=== PATIENT | male | born 1960 | race Two or more races ===

== ENCOUNTER 2017-11-30 12:11 | Emergency (ER) | payer SELFPAY ==
[2017-11-30 12:43] LABS: ADD MAN DIFF? NO
[2017-11-30 12:47] LABS: BASO # 0.1 x10^3/uL (0.0-0.2); BASO % 1 % (0-3); EOS # 0.2 x10^3/uL (0.0-0.7); EOS % 3 % (0-3); HEMATOCRIT 39.8 % (39.0-53.0); HEMOGLOBIN 13.6 g/dL (13.0-17.5); LYMPH # 1.3 x10^3/uL (1.0-4.8); LYMPH % 17 % (24-48); MEAN CORPUSCULAR HEMOGLOBIN 30 pg (25-35); MEAN CORPUSCULAR HGB CONC 34 g/dL (31-37); MEAN CORPUSCULAR VOLUME 87 fL (79-100); MONO # 0.9 x10^3/uL (0.0-1.1); MONO % 11 % (0-9); NEUT # 5.6 x10^3uL (1.8-7.7); NEUT % 69 % (31-73); PLATELET COUNT 170 x10^3/uL (140-400); RED BLOOD COUNT 4.58 x10^6/uL (4.30-5.70); WHITE BLOOD COUNT 8.1 x10^3/uL (4.0-11.0)
[2017-11-30 12:57] LABS: PARTIAL THROMBOPLASTIN TIME 30 SEC (24-38); PROTHROMBIN TIME PATIENT 12.6 SEC (11.7-14.0)
[2017-11-30] MEDS: LABETALOL 20 MG/4 ML DISP.SYRIN. IVP ×2 (13:00)
[2017-11-30] MEDS: IV NORMAL SALINE 500ML BAG 500 ML IV ×2 (13:01)
[2017-11-30 13:06] LABS: ALBUMIN 3.7 g/dL (3.4-5.0); ALBUMIN/GLOBULIN RATIO 0.8 (1.0-1.7); ALK PHOS 120 U/L (46-116); ALT (SGPT) 62 U/L (16-63); ANION GAP 12 (6-14); AST (SGOT) 72 U/L (15-37); BLOOD UREA NITROGEN 10 mg/dL (8-26); BUN/CREATININE RATIO 11 (6-20); CALCIUM 9.3 mg/dL (8.5-10.1); CARBON DIOXIDE 28 mmol/L (21-32); CHLORIDE 97 mmol/L (98-107); CREATININE 0.9 mg/dL (0.7-1.3); GFR 87.3; GLUCOSE 114 mg/dL (70-99); SODIUM 137 mmol/L (136-145); TOTAL BILIRUBIN 0.5 mg/dL (0.2-1.0); TOTAL PROTEIN 8.3 g/dL (6.4-8.2)
[2017-11-30 13:07] LABS: POTASSIUM 2.9 mmol/L (3.5-5.1)
[2017-11-30 13:37] LABS: FECAL OB PT POSITIVE (NEG); NEG OBC FOB NEG; POS OBC FOB POS
[2017-11-30] MEDS: POTASSIUM CHLORIDE 20 MEQ TABLET.ER. PO ×2 (13:51)
== END 2017-11-30 14:35 | disposition home or self-care (01) ==
LOC: ER 12:11
DX: K62.5 Hemorrhage of anus and rectum (principal); E87.6 Hypokalemia
CPT/HCPCS: 36415; 80053; 82274; 85025; 85610; 85730; 96361; 96374; 96375; 99284-25; J2060; J3490; J7040

== ENCOUNTER 2018-08-11 15:23 | Emergency (ER) | payer SELFPAY ==
[~2018-08-11] VITALS: Ht 162.6 cm; Wt 59.0 kg
[~2018-08-11 15:23] MED LIST: OMEP20TA63 PO; POTA10TA11 PO
[2018-08-11 15:38] VITALS: BP 171/100
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
[2018-08-11] MEDS ORDERED: HYDR-971 PO (17:32)
== END 2018-08-11 17:51 | disposition home or self-care (01) ==
LOC: ER 15:23
DX: S09.8XXA Other specified injuries of head, initial encounter (principal); R07.81 Pleurodynia; H93.13 Tinnitus, bilateral; R42 Dizziness and giddiness; E78.00 Pure hypercholesterolemia, unspecified; I10 Essential (primary) hypertension; Y08.89XA Assault by other specified means, initial encounter; Y93.89 Activity, other specified; Y92.89 Other specified places as the place of occurrence of the external cause; Y99.8 Other external cause status
CPT/HCPCS: 70450; 71111; 99284

== ENCOUNTER 2020-04-23 16:45 | Emergency (ER) | payer OTHER ==
[~2020-04-23] VITALS: Ht 162.6 cm; Wt 63.6 kg
[~2020-04-23 16:45] MED LIST changes: +HYDR-3164 PO
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
[2020-04-23 17:54] LABS: BASO # 0.1 x10^3/uL (0.0-0.2); BASO % 1 % (0-3); EOS % 0 % (0-3); HEMATOCRIT 42.6 % (39.0-53.0); HEMOGLOBIN 14.8 g/dL (13.0-17.5); LYMPH # 0.8 x10^3/uL (1.0-4.8); LYMPH % 7 % (24-48); MEAN CORPUSCULAR HEMOGLOBIN 30 pg (25-35); MEAN CORPUSCULAR HGB CONC 35 g/dL (31-37); MEAN CORPUSCULAR VOLUME 85 fL (79-100); MONO # 0.6 x10^3/uL (0.0-1.1); MONO % 5 % (0-9); NEUT # 9.4 x10^3/uL (1.8-7.7); NEUT % 87 % (31-73); PLATELET COUNT 280 x10^3/uL (140-400); RED BLOOD COUNT 5.04 x10^6/uL (4.30-5.70); RED CELL DISTRIBUTION WIDTH 14.9 % (11.5-14.5); WHITE BLOOD COUNT 10.8 x10^3/uL (4.0-11.0)
[2020-04-23] MEDS ORDERED: PANTOPRAZOLE IV PUSH 40 MG VIAL. IVP ONE (18:00)
[2020-04-23] MEDS ORDERED: IV NORMAL SALINE 1000ML BAG 1,000 ML IV SCH (18:00)
[2020-04-23] MEDS ORDERED: ONDANSETRON PF 4 MG/2 ML VIAL. IVP ONE (18:00)
[2020-04-23 18:03] LABS: PROTHROMBIN TIME PATIENT 13.3 SEC (11.7-14.0)
[2020-04-23 18:06] LABS: CALCIUM 8.6 mg/dL (8.5-10.1); CREATININE 1.3 mg/dL (0.7-1.3); GFR 56.5; POTASSIUM 4.2 mmol/L (3.5-5.1)
[2020-04-23 18:09] LABS: ALBUMIN 3.7 g/dL (3.4-5.0); ALBUMIN/GLOBULIN RATIO 0.8 (1.0-1.7); MAGNESIUM 1.7 mg/dL (1.8-2.4); TOTAL BILIRUBIN 0.7 mg/dL (0.2-1.0); TOTAL PROTEIN 8.3 g/dL (6.4-8.2)
[2020-04-23] MEDS ORDERED: CONTRAST GIVEN. MC PRN (18:30)
[2020-04-23] MEDS ORDERED: IOHEXOL 300 MG/ML 100ML VIAL. IV ONE (18:30)
--- NOTE | 2020-04-23 18:35 | RAD ---
PORTABLE CHEST 1V 04/23/2020 5:30 PM INDICATION: Vomiting COMPARISON: None available TECHNIQUE: Portable frontal view of the chest is provided. FINDINGS: The cardiomediastinal silhouette is within normal limits. Lungs are clear. There are no significant pleural effusions. There is no pulmonary vascular congestion. No pneumothorax. No suspicious osseous abnormality. IMPRESSION: There is no acute cardiopulmonary process. Electronically signed by: Emily Aparicio MD (04/23/2020 6:32 PM) [facility]
--- NOTE | 2020-04-23 18:57 | RAD ---
Exam: CT of abdomen and pelvis with contrast INDICATION: Nausea vomiting TECHNIQUE: Sequential axial images through the pelvis obtained following the administration of 60 mL of Omni 300 IV contrast. Sagittal and coronal reformatted images were reconstructed from the axial data and reviewed. Comparisons: None FINDINGS: Heart size is normal. No pericardial effusion. Visualized lung bases are clear. No pleural effusion. Diffuse hepatic steatosis. Spleen, pancreas, gallbladder and adrenals are unremarkable. No perinephric inflammation or hydronephrosis. No renal or ureteral calculi are identified. Bladder is decompressed not well evaluated. Prostate is not enlarged. Few scattered diverticula noted within the descending colon without evidence of acute diverticulitis. Appendix is normal. No free abdominal air or fluid. No obstruction. Abdominal aorta has a normal course and caliber. Abdominal vasculature is patent. No enlarged abdominal lymph nodes are identified. No suspicious osseous lesions or acute fractures. IMPRESSION: 1. Diverticulosis without evidence of acute diverticulitis. 2. Diffuse hepatic steatosis. Exposure: One or more of the following in the visualized dose reduction techniques were utilized for this examination: 1. Automated exposure control 2. Adjustment of the MA and/or KV according to patient size 3. Use of iterative of reconstructive technique Electronically signed by: Adan Barfield MD (04/23/2020 6:54 PM) [id number]
[2020-04-23] MEDS ORDERED: MULTIVIT INFUSN,ADULT 4,VIT K 10 ML, THIAMINE INJ 100 MG, FOLIC ACID INJ 1 MG in IV NOR... IV ONE (19:00)
[2020-04-23 19:05] LABS: % BANDS 2 % (0-9); % LYMPHS 5 % (24-48); % MONOS 2 % (0-10); % SEGS 91 % (35-66); PLT ESTIMATE ADEQUATE (ADEQUATE)
[2020-04-23 19:27] LABS: BILIRUBIN,URINE NEGATIVE (NEG); CLARITY,URINE CLEAR; COLOR,URINE YELLOW; NITRITE,URINE NEGATIVE (NEG); PH,URINE 6.5 (<5.0-8.0); PROTEIN,URINE NEGATIVE (NEG-TRACE); UROBILINOGEN,URINE 0.2 mg/dL (0.2 mg/dL)
[2020-04-23 19:35] LABS: BARBITURATES NEG (NEG); BENZODIAZEPINES NEG (NEG); CANNABINOIDS NEG (NEG); COCAINE NEG (NEG); HYALINE CASTS, URINE FEW /HPF; METHADONE NEG (NEG); OPIATES NEG (NEG); PHENCYCLIDINE NEG (NEG)
[2020-04-23 19:36] LABS: BACTERIA,URINE 0 /HPF (0-FEW); RBC,URINE 0 /HPF (0-2)
[2020-04-23 19:38] LABS: AMPHETAMINE/METHAMPHETAMINE NEG (NEG)
[2020-04-23 20:15] VITALS: BP 158/76
[2020-04-23] MEDS ORDERED: ONDA4TAB12 PO (20:30)
--- NOTE | 2020-04-25 09:33 | EKG ---
[facility] [address] [place] [address] Test Date: 2020-04-23 Test Time: 17:47:56 Pat Name: ROX JAY Department: Room: Gender: M Cloth Shearer: : 1960 Requested By: RITA FONSECA Order Number: [id number] Reading MD: Measurements Intervals Munger Rate: 88 P: 31 CA: 160 QRS: 28 QRSD: 84 T: 29 QT: 350 QTc: 427 Interpretive Statements SINUS RHYTHM NORMAL ECG RI6.02 No previous ECG available for comparison
== END 2020-04-23 20:43 | disposition home or self-care (01) ==
LOC: ER 16:45
DX: R11.2 Nausea with vomiting, unspecified (principal); I10 Essential (primary) hypertension; E78.00 Pure hypercholesterolemia, unspecified; F10.20 Alcohol dependence, uncomplicated; Y90.0 Blood alcohol level of less than 20 mg/100 ml; M10.9 Gout, unspecified
CPT/HCPCS: 36415; 71045; 74177; 80053; 80307; 81001; 83690; 83735; 84484; 85007; 85025; 85610; 93005; 96361; 96365; 96375; 99285; C9113; G0480; J2405; J3411; J3490; J7030; Q9967

== ENCOUNTER 2020-07-04 02:21 | Emergency (ER) | payer OTHER ==
[~2020-07-04] VITALS: Ht 165.1 cm; Wt 67.7 kg
[~2020-07-04 02:21] MED LIST changes: +ONDA4TAB12 PO
--- NOTE | 2020-07-04 03:12 | PHYS DOC ---
Past Medical History Past Medical History: Alcoholism, High Cholesterol, Hypertension, Other Additional Past Medical Histor: gout Past Surgical History: Other Additional Past Surgical Histo: left knee-arthroscopy Smoking Status: Never Smoker Alcohol Use: Heavy Drug Use: None General Adult EDM: Chief Complaint: MULTIPLE COMPLAINTS HPI: HPI: Patient is a 59 year old male with a past medical history of pretension presents with a chief complaint of chest pain. Patient states around midnight he was laying in his bed and had sudden onset of left sided chest discomfort. He describes the discomfort as somewhat of a pressure. Patient states he had associated discomfort in his left neck numbness and tingling in his cheeks and a sensation of someone pulling his hair. Patient states symptoms lasted for 10 minutes then resolved and did not return. Patient denied any associated nausea vomiting shortness of breath slurred speech or extremity weakness. Patient states he took ibuprofen around this time. Review of Systems: Review of Systems: Constitutional: Denies fever or chills. [] Eyes: Denies change in visual acuity. [] HENT: Denies nasal congestion or sore throat. [] Respiratory: Denies cough or shortness of breath. [] Cardiovascular: Positive chest pain GI: Denies abdominal pain, nausea, vomiting, bloody stools or diarrhea. [] : Denies dysuria. [] Musculoskeletal: Denies back pain or joint pain. [] Integument: Denies rash. [] Neurologic: Denies headache, focal weakness or sensory changes. [Positive paresthesia] Endocrine: Denies polyuria or polydipsia. [] Lymphatic: Denies swollen glands. [] Psychiatric: Denies depression or anxiety. [] Heart Score: HEART Score for Chest Pain: HEART Score for Chest Pain Response (Comments) Value History Slighlty/Non-Suspicious 0 ECG Normal 0 Age < 45 0 Risk Factors 1 or 2 Risk Factors 1 Troponin < Normal Limit 0 Total 1 Risk Factors: Risk Factors: DM, Current or recent (<one month) smoker, HTN, HLP, family history of CAD, obesity. Risk Scores: Score 0 - 3: 2.5% MACE over next 6 weeks - Discharge Home Score 4 - 6: 20.3% MACE over next 6 weeks - Admit for Clinical Observation Score 7 - 10: 72.7% MACE over next 6 weeks - Early Invasive Strategies Allergies: Allergies: Allergies Coded Allergies Type Severity Reaction Last Updated Verified No Known Drug Allergies 2/24/18 No Physical Exam: PE: Constitutional: Well developed, well nourished, no acute distress, non-toxic appearance. [] HENT: Normocephalic, atraumatic, bilateral external ears normal, oropharynx moist, no oral exudates, nose normal. [] Eyes: PERRLA, EOMI, conjunctiva normal, no discharge. [] Neck: Normal range of motion, no tenderness, supple, no stridor. [] Cardiovascular:Heart rate regular rhythm, no murmur [] Lungs & Thorax: Bilateral breath sounds clear to auscultation [] Abdomen: Bowel sounds normal, soft, no tenderness, no masses, no pulsatile m asses. [] Skin: Warm, dry, no erythema, no rash. [] Back: No tenderness, no CVA tenderness. [] Extremities: No tenderness, no cyanosis, no clubbing, ROM intact, no edema. [] Neurologic: Alert and oriented X 3, normal motor function, normal sensory function, no focal deficits noted. [] Psychologic: Affect normal, judgement normal, mood normal. [] Current Patient Data: Vital Signs: Vital Signs Date Time Temp Pulse Resp B/P (MAP) Pulse Ox O2 Delivery O2 Flow Rate FiO2 07/04/20 02:39 98.2 96 18 198/110 (139) 99 Room Air 98.2 EKG: EKG: EKG performed at 0312. Heart rate [address] elevation no ST depression no acute ND [] Radiology/Procedures: Radiology/Procedures: [] Course & Med Decision Making: Course & Med Decision Making Pertinent Labs and Imaging studies reviewed. (See chart for details) [] UA for chief complaint. Work-up consisted of laboratory analysis radiologic imaging and EKG. Results reviewed and discussed with patient. Treatment included aspirin. Patient heart score 1. Work-up essentially negative. Patient discharged home with instructions to follow-up with primary care physician. Robles Disclaimer: Robles Disclaimer: This electronic medical record was generated, in whole or in part, using a voice recognition dictation system. Departure Departure Impression: Primary Impression: Chest pain Disposition: HOME, SELF-CARE Referrals: NO PCP (PCP) Patient Instructions: Chest Pain (Nonspecific) Justicifation of Admission Dx: Justifications for Admission: Justification of Admission Dx: N/A ANTHONY FIGUEROA DO Jul 04, 2020 03:12
[2020-07-04 03:13] LABS: BASO % 1 % (0-3); EOS # 0.1 x10^3/uL (0.0-0.7); EOS % 3 % (0-3); HEMATOCRIT 37.3 % (39.0-53.0); HEMOGLOBIN 12.9 g/dL (13.0-17.5); LYMPH # 1.3 x10^3/uL (1.0-4.8); LYMPH % 24 % (24-48); MEAN CORPUSCULAR HEMOGLOBIN 28 pg (25-35); MEAN CORPUSCULAR HGB CONC 35 g/dL (31-37); MEAN CORPUSCULAR VOLUME 82 fL (79-100); MONO # 0.9 x10^3/uL (0.0-1.1); MONO % 17 % (0-9); NEUT # 2.9 x10^3/uL (1.8-7.7); NEUT % 55 % (31-73); PLATELET COUNT 113 x10^3/uL (140-400); RED BLOOD COUNT 4.55 x10^6/uL (4.30-5.70); RED CELL DISTRIBUTION WIDTH 14.7 % (11.5-14.5); WHITE BLOOD COUNT 5.2 x10^3/uL (4.0-11.0)
[2020-07-04 03:22] LABS: CALCIUM 8.5 mg/dL (8.5-10.1); CREATININE 0.8 mg/dL (0.7-1.3); GFR 98.9; POTASSIUM 3.6 mmol/L (3.5-5.1)
[2020-07-04 03:27] LABS: ALBUMIN 3.3 g/dL (3.4-5.0); ALBUMIN/GLOBULIN RATIO 0.9 (1.0-1.7); TOTAL BILIRUBIN 0.3 mg/dL (0.2-1.0); TOTAL PROTEIN 7.1 g/dL (6.4-8.2)
[2020-07-04] MEDS ORDERED: ASPIRIN CHEWABLE 81 MG TABLET. PO ONE (03:30)
--- NOTE | 2020-07-04 03:36 | RAD ---
Chest AP portable at 0320: Reason for examination: Chest pain. Comparison is made to previous study dated 04/23/2020. The heart size is normal. Mediastinum is unremarkable. Lung chavez are clear. No acute bony abnormalities are seen. Impression: No acute cardiopulmonary disease. Electronically signed by: Jackie Reza MD (07/04/2020 3:33 AM) [facility]
[2020-07-04 04:03] VITALS: BP 152/74
--- NOTE | 2020-07-04 20:02 | EKG ---
[facility] [address] [place] [address] Test Date: 2020-07-04 Test Time: 03:12:53 Pat Name: ROX JAY Department: Room: Gender: M [employer]ec[employer]er: : 1960 Requested By: ANTHONY FIGUEROA Order Number: [id number] Reading MD: Neri Miller Measurements Intervals [place] Rate: 78 P: 36 NH: 172 QRS: 24 QRSD: 88 T: 15 QT: 376 QTc: 432 Interpretive Statements SINUS RHYTHM NORMAL ECG RI6.01 Electronically Signed On 07-06-2020 12:27:19 CDT by Neri Miller
== END 2020-07-04 04:45 | disposition home or self-care (01) ==
LOC: ER 02:21
DX: R07.89 Other chest pain (principal); R20.2 Paresthesia of skin; E78.00 Pure hypercholesterolemia, unspecified; I10 Essential (primary) hypertension; F10.10 Alcohol abuse, uncomplicated; Z98.890 Other specified postprocedural states
CPT/HCPCS: 36415; 71045; 80053; 84484; 85025; 93005; 99285

== ENCOUNTER 2020-08-29 12:17 | Emergency (ER) | payer OTHER ==
[~2020-08-29] VITALS: Ht 162.6 cm; Wt 65.0 kg
[2020-08-29 14:10] VITALS: BP 165/95
[2020-08-29 15:27] LABS: HEMATOCRIT 40.1 % (39.0-53.0); HEMOGLOBIN 13.4 g/dL (13.0-17.5); RED BLOOD COUNT 4.76 x10^6/uL (4.30-5.70); RED CELL DISTRIBUTION WIDTH 14.9 % (11.5-14.5); WHITE BLOOD COUNT 8.7 x10^3/uL (4.0-11.0)
--- NOTE | 2020-08-29 15:46 | RAD ---
LEFT FOOT AP LATERAL OBLIQUE Clinical Indication: Reason: pain hx of gout / Spl. Instructions: / History: Comparison: None. Findings: There is no acute fracture or dislocation. Mild joint space narrowing first MTP. The bony alignment is normal. Mineralization is normal. No bony erosion. Moderate Achilles calcaneal enthesophyte. Arterial calcifications are seen. Prominent os peroneum. There is no soft tissue abnormality. IMPRESSION: No acute fracture. Electronically signed by: Josué Richmond MD (08/29/2020 3:43 PM) [facility]
[2020-08-29 15:52] LABS: CALCIUM 9.5 mg/dL (8.5-10.1); CREATININE 0.9 mg/dL (0.7-1.3); GFR 86.4
--- NOTE | 2020-08-29 15:56 | RAD ---
EXAM: KNEE RIGHT 4V 08/29/2020 2:34 PM CLINICAL INDICATION:Right knee pain, history of gout COMPARISON:None TECHNIQUE:Or views of the right knee FINDINGS:No acute fracture. Alignment is normal. There are tiny patellofemoral osteophytes. Joint spaces are maintained. No erosions. No significant joint effusion, evidence of bursitis, or or soft tissue abnormality. IMPRESSION:No acute osseous abnormality. Mild degenerative joint disease. Electronically signed by: Zeynep Tyson MD (08/29/2020 3:53 PM) [id number]
[2020-08-29 15:57] LABS: ALBUMIN 3.6 g/dL (3.4-5.0); ALBUMIN/GLOBULIN RATIO 0.9 (1.0-1.7); TOTAL BILIRUBIN 0.3 mg/dL (0.2-1.0); TOTAL PROTEIN 7.8 g/dL (6.4-8.2); URIC ACID 6.3 mg/dL (3.5-7.2)
[2020-08-29] MEDS ORDERED: METH4TAB2 PO (16:48)
[2020-08-29] MEDS ORDERED: DICL50TA2 PO (16:48)
[2020-08-29] MEDS ORDERED: GABA300C18 PO (16:48)
--- NOTE | 2020-08-29 16:48 | PHYS DOC ---
Past Medical History Past Medical History: Hypertension, Other Additional Past Medical Histor: gout Past Surgical History: Other Additional Past Surgical Histo: left knee scoped Smoking Status: Never Smoker Alcohol Use: None Drug Use: None General Adult EDM: Chief Complaint: FOOT INJURY PAIN HPI: HPI: Patient is a 59 year old male patient with history of gout though it sounds like self diagnosed who presents the ED today complaining of moderate pain to the left foot and right knee that has been going on for 3 weeks. Patient denies any injury. States most of the pain is on weightbearing. Denies anything relieving the pain. Describes the pain as a burning sensation to the foot. Denies any history of diabetes. Review of Systems: Review of Systems: Constitutional: Denies fever or chills. [] Musculoskeletal: Reports left foot and right knee pain Integument: Denies rash. [] Neurologic: Denies headache, focal weakness or sensory changes. [] Psychiatric: Denies depression or anxiety. [] Heart Score: Risk Factors: Risk Factors: DM, Current or recent (<one month) smoker, HTN, HLP, family history of CAD, obesity. Risk Scores: Score 0 - 3: 2.5% MACE over next 6 weeks - Discharge Home Score 4 - 6: 20.3% MACE over next 6 weeks - Admit for Clinical Observation Score 7 - 10: 72.7% MACE over next 6 weeks - Early Invasive Strategies Allergies: Allergies: Allergies Coded Allergies Type Severity Reaction Last Updated Verified No Known Drug Allergies 11/30/17 No Physical Exam: PE: Constitutional: Well developed, well nourished, no acute distress, non-toxic appearance. [] Skin: Warm, dry, no erythema, no rash. [] Back: No tenderness, no CVA tenderness. [] Extremities: Bilateral lower extremities with no obvious deformity. Full range of motion to bilateral lower extremities. +2 bilateral pedal pulses. Cap refill less than 2 seconds bilateral lower extremities. Neurologic: Alert and oriented X 3, normal motor function, normal sensory function, no focal deficits noted. [] Psychologic: Affect normal, judgement normal, mood normal. [] Current Patient Data: Labs: Laboratory Tests Test 08/29/20 15:10 White Blood Count 8.7 x10^3/uL (4.0-11.0) Red Blood Count 4.76 x10^6/uL (4.30-5.70) Hemoglobin 13.4 g/dL (13.0-17.5) Hematocrit 40.1 % (39.0-53.0) Mean Corpuscular Volume 84 fL (79-100) Mean Corpuscular Hemoglobin 28 pg (25-35) Mean Corpuscular Hemoglobin Concent 33 g/dL (31-37) Red Cell Distribution Width 14.9 % (11.5-14.5) H Platelet Count 189 x10^3/uL (140-400) Sodium Level 139 mmol/L (136-145) Potassium Level 4.0 mmol/L (3.5-5.1) Chloride Level 101 mmol/L (98-107) Carbon Dioxide Level 26 mmol/L (21-32) Anion Gap 12 (6-14) Blood Urea Nitrogen 8 mg/dL (8-26) Creatinine 0.9 mg/dL (0.7-1.3) Estimated GFR (Cockcroft-Gault) 86.4 BUN/Creatinine Ratio 9 (6-20) Glucose Level 85 mg/dL (70-99) Uric Acid 6.3 mg/dL (3.5-7.2) Calcium Level 9.5 mg/dL (8.5-10.1) Total Bilirubin 0.3 mg/dL (0.2-1.0) Aspartate Amino Transferase (AST) 54 U/L (15-37) H Alanine Aminotransferase (ALT) 48 U/L (16-63) Alkaline Phosphatase 95 U/L (46-116) Total Protein 7.8 g/dL (6.4-8.2) Albumin 3.6 g/dL (3.4-5.0) Albumin/Globulin Ratio 0.9 (1.0-1.7) L Laboratory Tests 08/29/20 15:10 Laboratory Tests 08/29/20 15:10 Vital Signs: Vital Signs Date Time Temp Pulse Resp B/P (MAP) Pulse Ox O2 Delivery O2 Flow Rate FiO2 08/29/20 14:10 98.2 72 16 165/95 (118) 97 Room Air 98.2 EKG: EKG: [] Radiology/Procedures: Radiology/Procedures: []PROCEDURE: FOOT LEFT 3V LEFT FOOT AP LATERAL OBLIQUE Clinical Indication: Reason: pain hx of gout / Spl. Instructions: / History: Comparison: None. Findings: There is no acute fracture or dislocation. Mild joint space narrowing first MTP. The bony alignment is normal. Mineralization is normal. No bony erosion. Moderate Achilles calcaneal enthesophyte. Arterial calcifications are seen. Prominent os peroneum. There is no soft tissue abnormality. IMPRESSION: No acute fracture. Electronically signed by: Josué Richmond MD (08/29/2020 3:43 PM) [id number] DICTATED and SIGNED BY: JOSUÉ RICHMOND MD DATE: 08/29/20 [id number] PROCEDURE: KNEE RIGHT 4V EXAM: KNEE RIGHT 4V 08/29/2020 2:34 PM CLINICAL INDICATION:Right knee pain, history of gout COMPARISON:None TECHNIQUE:Or views of the right knee FINDINGS:No acute fracture. Alignment is normal. There are tiny patellofemoral osteophytes. Joint spaces are maintained. No erosions. No significant joint effusion, evidence of bursitis, or or soft tissue abnormality. IMPRESSION:No acute osseous abnormality. Mild degenerative joint disease. Electronically signed by: Zeynep Tyson MD (08/29/2020 3:53 PM) [id number] DICTATED and SIGNED BY: ZEYNEP TYSON MD DATE: 08/29/20 [id number] Course & Med Decision Making: Course & Med Decision Making Pertinent Labs and Imaging studies reviewed. (See chart for details) This is a 59-year-old male patient presenting to the ED today complaining of left foot pain and right knee pain that he believes is from a self diagnosed gout. Left foot x-rays are negative for any acute findings, right knee x-rays are negative for any acute findings, noted for DJD of the right knee. Uric acid is normal, CBC with no acute findings, CMP with no acute findings. Patient was discharged to home. Provided prescription for gabapentin Medrol Dosepak and diclofenac. Provided instructions to follow-up with the PCP. Robles Disclaimer: Robles Disclaimer: This electronic medical record was generated, in whole or in part, using a voice recognition dictation system. Departure Departure Impression: Primary Impression: Right knee pain Qualified Codes: M25.561 - Pain in right knee Additional Impressions: Left foot pain Arthritis of knee, left Disposition: 01 DC HOME SELF CARE/HOMELESS Condition: STABLE Referrals: NO PCP (PCP) follow up with the clinic next week MINDY WOODS MD follow up in one week Patient Instructions: Arthritis, Degenerative-Brief, Knee Pain, [id number], Pain, Neuropathic-Brief Additional Instructions: You were evaluated in the emergency room, your lab work was negative for any acute findings. Your left foot x-rays and right knee x-rays were negative for any acute findings. You have arthritis in your right knee. Please take the prescribed medications as ordered and follow-up with the provided specialist or your own doctor in 1 week Scripts Diclofenac Potassium (DICLOFENAC POTASSIUM) 50 Mg Tablet 1 TAB PO BID, #20 TAB 0 Refills Prov: AMANDA RAMOS APRN 08/29/20 Methylprednisolone (MEDROL) 4 Mg Tab.ds.pk 1 PKG PO UD, #1 PKG Prov: AMANDA RAMOS APRN 08/29/20 Gabapentin (GABAPENTIN ) 300 Mg Capsule 300 MG PO TID for NEUROGENIC PAIN, #30 CAP Prov: AMANDA RAMOS APRN 08/29/20 AMANDA RAMOS APRN Aug 29, 2020 16:48
== END 2020-08-29 17:08 | disposition home or self-care (01) ==
LOC: ER 12:17
DX: M25.561 Pain in right knee (principal); M13.861 Other specified arthritis, right knee; I10 Essential (primary) hypertension; Z98.890 Other specified postprocedural states
CPT/HCPCS: 36415; 73564; 73630; 80053; 84550; 85027; 99284

== ENCOUNTER 2020-11-04 13:05 | Emergency (ER) | payer OTHER ==
[~2020-11-04] VITALS: Ht 162.6 cm; Wt 63.6 kg
[~2020-11-04 13:05] MED LIST changes: +DICL50TA2 PO; +GABA300C18 PO; +METH4TAB2 PO
[2020-11-04 13:11] VITALS: BP 154/102
[2020-11-04] MEDS ORDERED: FLUORESCEIN OPHTH TEST STRIP. OD ONE (13:45)
[2020-11-04] MEDS ORDERED: ONDA4TAB12 PO (14:45)
[2020-11-04] MEDS ORDERED: LISI20TA18 PO (14:45)
--- NOTE | 2020-11-04 14:49 | PHYS DOC ---
Past Medical History Past Medical History: Hypertension, Other Additional Past Medical Histor: gout Past Surgical History: Other Additional Past Surgical Histo: left knee scoped Smoking Status: Never Smoker Alcohol Use: None Drug Use: None General Adult EDM: Chief Complaint: EYE PROBLEMS HPI: HPI: 59-year-old male past medical history of hypertension, presents to the ED with complaints of painless right red eye x4 days, no head/neck trauma. Patient states he has been unable to see his primary care physician at [facility] for the past 2 months due to high volume. Is requesting referral to [facility]. He is out of his lisinopril 20 mg daily prescription. Denies any associated chest pain, dyspnea, confusion or neurologic deficits. Pt denies any heavy alcohol use/binge drinking. Review of Systems: Review of Systems: Constitutional: Denies fever or chills. [] Eyes: Denies change in visual acuity or vision loss HENT: Denies nasal congestion or sore throat. [] Respiratory: Denies cough or shortness of breath. [] Cardiovascular: Denies chest pain or edema. [] GI: Denies abdominal pain, nausea, vomiting, bloody stools or diarrhea. [] : Denies dysuria. [] Musculoskeletal: Denies back pain or joint pain. [] Integument: Denies rash. [] Neurologic: Denies headache, focal weakness or sensory changes. [] Endocrine: Denies polyuria or polydipsia. [] Lymphatic: Denies swollen glands. [] Psychiatric: Denies depression or anxiety. [] Heart Score: Risk Factors: Risk Factors: DM, Current or recent (<one month) smoker, HTN, HLP, family h istory of CAD, obesity. Risk Scores: Score 0 - 3: 2.5% MACE over next 6 weeks - Discharge Home Score 4 - 6: 20.3% MACE over next 6 weeks - Admit for Clinical Observation Score 7 - 10: 72.7% MACE over next 6 weeks - Early Invasive Strategies Current Medications: Current Medications Medications (Trade) Dose Ordered Sig/Yarelis Start Time Stop Time Status Last Admin Dose Admin Fluorescein Sodium (Ful-Smiley) 1 strip 1X ONCE 11/04/20 13:45 11/04/20 13:46 DC 11/04/20 14:00 1 STRIP Allergies: Allergies: Allergies Coded Allergies Type Severity Reaction Last Updated Verified No Known Drug Allergies 11/30/17 No Physical Exam: PE: Constitutional: Well developed, well nourished, no acute distress, non-toxic appearance. HENT: Normocephalic, atraumatic, Eyes: PERRLA, EOMI, no discharge, blood over right conjunctiva, no hyphema Neck: Normal range of motion, supple, Cardiovascular: S1/2 present, regular rhythm Lungs & Thorax: Speaking in full sentences, bilateral equal chest rise, no tachypnea or increased work of breathing Abdomen: soft, no tenderness, Skin: Warm, dry, no erythema, no rash. [] Back: No tenderness, no CVA tenderness. [] Extremities: No tenderness, no cyanosis, no edema Neurologic: Alert and oriented X 3, normal motor function, normal sensory function, no focal deficits noted. [] Psychologic: Affect normal, judgement normal, mood normal. [] Current Patient Data: Vital Signs: Vital Signs Date Time Temp Pulse Resp B/P (MAP) Pulse Ox O2 Delivery O2 Flow Rate FiO2 11/04/20 13:11 98.0 95 17 154/102 (119) 97 Room Air 98.0 EKG: EKG: [] Radiology/Procedures: Radiology/Procedures: [] Course & Med Decision Making: Course & Med Decision Making Pertinent Labs and Imaging studies reviewed. (See chart for details) Patient presents to the ED with multiple complaints. Has a longstanding history of nausea and vomiting-suspect gastroparesis vs gerd vs PUD/hpylori. Patient also with uncontrolled, asymptomatic hypertension. Eye exam c/w subconjunctival injection (h/h stable 08/2020, plts 189) which could be from n/v. Will discharge home with strict ED return precautions were given for blurry vision or vision loss, severe abdominal pain, dehydration, intractable nausea and vomiting or chest pain. Encouraged urgent outpatient follow-up with PMD and GI for outpatient endoscopy. Life-threatening processes were considered but are low suspicion at this time, given history, physical exam and ED workup. Pt was educated on all prescription medications and adverse effects. All patient's questions were answered and pt was stable at time of discharge. Life/limb-threatening differential includes but is not limited to, acute angle- closure glaucoma, uveitis, corneal abrasion, CRVO/CRAO, PRES, retinal detachment, vitreous hemorrhage, temporal arteritis, optic neuritis, high- altitude retinopathy foreign body, globe rupture, episcleritis, corneal ulcer, traumatic iritis, hyphema or empyema, orbital cellulitis, orbital hematoma, lens dislocation or orbital wall fracture. I spoken with the patient and her caregivers. I explained the patient's condition, diagnoses and treatment plan based on the information available to me at this time. I have answered the patient and her caregiver's questions and addressed any concerns. The patient and her caregivers have a good understanding of patient's diagnosis, condition and treatment plan as can be expected at this point. Vital signs have been stable. Patient's condition is stable and appropriate for discharge from the emergency department. Patient will pursue further outpatient evaluation with primary care physician or other designated or consulting physician as outlined in the discharge instructions. The patient and/or caregivers are agreeable to this plan of care and follow-up instructions have been explained in detail. The patient and/or caregivers have received these instructions in written form and have expressed an understanding of the discharge instructions. The patient and/or caregivers are aware that any significant change of condition or worsening of symptoms should prompt immediate return to this or the closest emergency department or call to [facility]. Robles Disclaimer: Robles Disclaimer: This electronic medical record was generated, in whole or in part, using a voice recognition dictation system. Departure Departure Impression: Primary Impression: Subconjunctival hemorrhage of right eye Additional Impressions: Nausea and vomiting Uncontrolled hypertension Disposition: 01 DC HOME SELF CARE/HOMELESS Condition: STABLE Referrals: NO PCP (PCP) FOLLOW UP WITH FAMILY MEDICINE: in 1-2 weeks to establish care Family Medicine Address: [address] [place] [id number] Patient Instructions: Hypertension, Nausea and Vomiting, Subconjunctival Hemorrhage Additional Instructions: FOLLOW UP WITH GASTROENTEROLOGY:-Evaluate for chronic history of nausea and vomiting, consider upper endoscopy/EGD Gastroenterology [facility] Address: [address] [place] [address] EMERGENCY DEPARTMENT GENERAL DISCHARGE INSTRUCTIONS Thank you for coming to [facility] Emergency Department (ED) today and trusting us with you care. We trust that you had a positive experience in our Emergency Department. If you wish to speak to the department management, you may call the Director at [phone]. YOUR FOLLOW UP INSTRUCTIONS ARE FOLLOWS: 1. Do you have a private Doctor? If you do not have a private doctor, please ask for a resource list of physicians or clinics that may be able to assist you with follow up care. 2. The Emergency Physicain has interpreted your x-rays. The X-Ray specialist will also review them. If there is a change in the findings, you will be notified in 48 hours when at all possible. 3. A lab test or culture has been done, your results will be reviewed and you will be notified if you need a change in treatment. ADDITIONAL INSTRUCTIONS AND INFORMATION: 1. Your care today has been supervised by a physician who is specially trained in emergency care. Many problems require more than one evaluation for a complete diagnosis and treatment. We recommend that you schedule your follow up appointment as recommended to ensure complete treatment of you illness or injury. If you are unable to obtain follow up care and continue to have a problem, or if your condition worsens, we recommend that you return to the ED. 2. We are not able to safely determine your condition over the phone nor are we able to give sound medical advice over the phone. For these safety reasons, if you call for medical advice we will ask you to come to the ED for further evaluation. 3. If you have any questions regarding these discharge instructions please call the ED at [phone]. SAFETY INFORMATION: In the interest of safety, wellness, and injury prevention; we encourage you to wear your sealbelt, if you smoke; quite smoking, and we encourage family to use a protective helmet for bicycling and other sporting events that present an increased risk for head injury. IF YOUR SYMPTOMS WORSEN OR NEW SYMPTOMS DEVELOP, OR YOU HAVE CONCERNS ABOUT YOUR CONDITION; OR IF YOUR CONDITION WORSENS WHILE YOU ARE WAITING FOR YOUR FOLLOW UP APPOINTMENT; EITHER CONTACT YOUR PRIMARY CARE DOCTOR, THE PHYSICIAN WHOSE NAME AND NUMBER YOU WERE GIVEN, OR RETURN TO THE ED IMMEDIATELY. Scripts Ondansetron (ONDANSETRON ODT) 4 Mg Tab.rapdis 1 TAB PO PRN Q6-8HRS, #20 TAB Prov: MOOK BARCLAY DO 11/04/20 Lisinopril (LISINOPRIL) 20 Mg Tablet 1 TAB PO DAILY for 30 Days, #30 TAB 1 Refill Prov: MOOK BARCLAY DO 11/04/20 MOOK BARCLAY DO Nov 04, 2020 14:49
== END 2020-11-04 15:04 | disposition home or self-care (01) ==
LOC: ER 13:05
DX: H11.31 Conjunctival hemorrhage, right eye (principal); R11.2 Nausea with vomiting, unspecified; I10 Essential (primary) hypertension; Z98.890 Other specified postprocedural states
CPT/HCPCS: 99283